=== PATIENT | male | born 1950 | race Caucasian/White ===

== ENCOUNTER 2019-02-19 11:13 | Emergency (ER) | payer MEDICARE ==
[~2019-02-19] VITALS: Ht 180.3 cm; Wt 102.1 kg
[2019-02-19 11:57] VITALS: BP 191/93
--- NOTE | 2019-02-19 12:19 | PHYS DOC ---
Past Medical History Past Medical History: Kidney Stone Additional Past Medical Histor: ENLARGED PROSTATE Past Surgical History: No Surgical History Alcohol Use: None Drug Use: None Adult General Chief Complaint Chief Complaint: URINARY RETENTION HPI HPI Patient is a 68 year old male who presented to ER today for evaluation of not able to urination 6:30 PM yesterday. Patient complaint of bladder distention and pain. Patient has history of benign prostatic hypertrophy. He denies any fever, no nausea vomiting. Review of Systems Review of Systems Constitutional: Denies fever or chills [] Eyes: Denies change in visual acuity, redness, or eye pain [] HENT: Denies nasal congestion or sore throat [] Respiratory: Denies cough or shortness of breath [] Cardiovascular: No additional information not addressed in HPI [] GI: Denies abdominal pain, nausea, vomiting, bloody stools or diarrhea [] : POSITIVE FOR URINARY RETENTION, BLADDER PAIN Musculoskeletal: Denies back pain or joint pain [] Integument: Denies rash or skin lesions [] Neurologic: Denies headache, focal weakness or sensory changes [] Endocrine: Denies polyuria or polydipsia [] All other systems were reviewed and found to be within normal limits, except as documented in this note. Current Medications Current Medications Current Medications Medications (Trade) Dose Ordered Sig/Layla Start Time Stop Time Status Last Admin Dose Admin Acetaminophen/ Hydrocodone Bitart (Lortab 5/325) 2 tab 1X ONCE 02/19/19 12:45 02/19/19 12:46 DC 02/19/19 12:24 2 TAB Diazepam (Valium) 5 mg 1X ONCE 02/19/19 12:30 02/19/19 12:31 DC 02/19/19 12:09 5 MG Tamsulosin HCl (Flomax) 0.4 mg 1X ONCE 02/19/19 12:30 02/19/19 12:31 DC 02/19/19 12:09 0.4 MG Allergies Allergies Allergies Coded Allergies Type Severity Reaction Last Updated Verified No Known Drug Allergies 02/19/19 No Physical Exam Physical Exam Constitutional: Well developed, well nourished, no acute distress, non-toxic appearance. [] Cardiovascular:Heart rate regular rhythm, no murmur [] Lungs & Thorax: Bilateral breath sounds clear to auscultation [] Abdomen: Bowel sounds normal, soft, tenderness AT SUPRAPUBIC AREA, BLADDER DISTENDED, no masses, no pulsatile masses. [] Skin: Warm, dry, no erythema, no rash. [] Back: No tenderness, no CVA tenderness. [] Extremities: No tenderness, no cyanosis, no clubbing, ROM intact, no edema. [] Neurologic: Alert and oriented X 3, normal motor function, normal sensory function, no focal deficits noted. [] Psychologic: Affect normal, judgement normal, mood normal. [] Current Patient Data Vital Signs Vital Signs Date Time Temp Pulse Resp B/P (MAP) Pulse Ox O2 Delivery O2 Flow Rate FiO2 02/19/19 12:24 18 02/19/19 11:57 97.7 83 191/93 (125) 98 Room Air 97.7 EKG EKG [] Radiology/Procedures Radiology/Procedures [] Course & Med Decision Making Course & Med Decision Making Pertinent Labs and Imaging studies reviewed. (See chart for details) A bladder scan shown 800 of URINE IN BLADDER, UROLOGIST PLACED PARHAM CATHETER IN ER, COLLECTED ABOUT 1 L OF URINE OUTPUT IMMEDIATELY. WILL DISCHARGE HOME WITH LEG BAG CATHETER. FOLLOW UP WITH UROLOGIST THIS WEEK. Dragon Disclaimer Dragon Disclaimer This electronic medical record was generated, in whole or in part, using a voice recognition dictation system. Departure Departure Impression: Primary Impression: Acute urinary retention Disposition: 01 HOME, SELF-CARE Condition: IMPROVED Referrals: ISAEL AQUINO (PCP) ALEXIS YOUSSEF MD FOLLOW UP WITH DR. YOUSSEF IN 3 DAYS FOR VOID TRIAL Patient Instructions: [place] Catheter Care, Adult, Urinary Retention, Acute, Male Scripts Tamsulosin Hcl (FLOMAX) 0.4 Mg Cap.er.24h 0.4 MG PO DAILY for 30 Days, #30 TAB Prov: OLIVE STALLWORTH DO 02/19/19 OLIVE STALLWORTH DO Feb 19, 2019 12:19
[2019-02-19] MEDS ORDERED: diazePAM 5 MG TABLET PO ONE (12:30)
[2019-02-19] MEDS ORDERED: TAMSULOSIN 0.4 MG CAP.ER.24H. PO ONE (12:30)
[2019-02-19] MEDS ORDERED: HYDROcodone/APAP 5/325MG 1 TAB TABLET PO ONE (12:45)
--- NOTE | 2019-02-19 13:19 | PDOC4 ---
PROCEDURE Procedure Asked to see patient to place burgos catheter. Er unsuccessful x 2 attempts. Patient reports history of BPH, no urinary bother until today. He sees Dr. Hawk. Patient sterilely prepped and draped and sterile technique used. Unable to pass 18 Ft coude catheter due to resistance at prostate. Able to pass hydrophilic guidewire into bladder, and then 16 [place] tribes catheter over the wire without resistance. 900 ml yellow urine returned. Start Flomax 0.4 mg daily. F/u 3 days in urology clinic for voiding trial. ALEXIS YOUSSEF MD Feb 19, 2019 13:19
[2019-02-19] MEDS ORDERED: TAMS0.4C97 PO (14:02)
== END 2019-02-19 14:15 | disposition home or self-care (01) ==
LOC: ER 11:13
DX: R33.9 Retention of urine, unspecified (principal); Z87.442 Personal history of urinary calculi
CPT/HCPCS: 51702; 99284

== ENCOUNTER 2019-02-25 16:20 | Emergency (ER) | payer MEDICARE ==
[~2019-02-25] VITALS: Ht 180.3 cm; Wt 104.3 kg
[~2019-02-25 16:20] MED LIST: TAMS0.4C97 PO
--- NOTE | 2019-02-25 16:55 | PHYS DOC ---
Past Medical History Past Medical History: Kidney Stone Additional Past Medical Histor: ENLARGED PROSTATE (ALEXIS HO APRN) Past Surgical History: No Surgical History (ALEXIS HO APRN) Alcohol Use: None Drug Use: None (ALEXIS HO APRN) Adult General Chief Complaint Chief Complaint: URINE CATHETER PROBLEM HPI HPI Patient is a 68 year old [male] who presents with [decreased urinary output. Patient reports he had been seen here with 56 days ago for inability to urinate, had been followed by her mils of urine at that time, had catheterization attempted without success and urology and placed a catheter using wire guidance. Patient reports he had his follow-up 3 days later, had catheter removed, was able to urinate at that time. Reports he had followed up with urology the next day in their late office as he was unable to urinate again. Reports he had the catheter replaced at that time. Reports over the past 2-3 days he has continued to have a catheter placed, had no issues other than has had some increasing blood clots in it. Reports he has not had any urine noted in his catheter bag since 5:00 this morning. Reports it does feel like he needs to urinate, he has had some blood coming out of this penis with a small amount of liquid since that time. Continue to have no fluid in his catheter bag. Does report he did have some clots in his catheter bag over the past couple days, he had to try to break to pass When He Was Draining the Bag.] (ALEXIS HO APRN) Review of Systems Review of Systems Constitutional: Denies fever or chills [] Respiratory: Denies cough or shortness of breath [] Cardiovascular: No additional information not addressed in HPI [] GI: Denies abdominal pain, nausea, vomiting, bloody stools or diarrhea [] : Reports inability to pass urine x 2 days, with clots noted to urine bag [] Musculoskeletal: Denies back pain or joint pain [] Integument: Denies rash or skin lesions [] Neurologic: Denies headache, focal weakness or sensory changes [] Endocrine: Denies polyuria or polydipsia [] All other systems were reviewed and found to be within normal limits, except as documented in this note. (ALEXIS HO APRN) Current Medications Current Medications Current Medications Medications (Trade) Dose Ordered Sig/Layla Start Time Stop Time Status Last Admin Dose Admin Sodium Chloride (NORMAL SALINE FLUSH for STERILE FIELD) 10 ml STK-MED ONCE 02/25/19 17:54 02/26/19 09:18 DC (LUIS AMBRIZ MD) Allergies Allergies Allergies Coded Allergies Type Severity Reaction Last Updated Verified No Known Drug Allergies 02/19/19 No (LUIS AMBRIZ MD) Physical Exam Physical Exam Constitutional: Well developed, well nourished, no acute distress, non-toxic appearance. [] HENT: Normocephalic, atraumatic, bilateral external ears normal, oropharynx moist, no oral exudates, nose normal. [] Eyes: PERRLA, EOMI, conjunctiva normal, no discharge. [] Neck: Normal range of motion, no tenderness, supple, no stridor. [] Cardiovascular:Heart rate regular rhythm, no murmur [] Lungs & Thorax: Bilateral breath sounds clear to auscultation [] Abdomen: Bowel sounds normal, soft, no tenderness, no masses, no pulsatile masses. [] Skin: Warm, dry, no erythema, no rash. [] Back: No tenderness, no CVA tenderness. [] Extremities: No tenderness, no cyanosis, no clubbing, ROM intact, no edema. [] Neurologic: Alert and oriented X 3, normal motor function, normal sensory function, no focal deficits noted. [] Psychologic: Affect normal, judgement normal, mood normal. : 16 Fr coude catheter noted in place. No urine or blood clots noted in catheter bag. Small amount of blood noted near meatus with small amount of leakage. [] (ALEXIS HO APRN) Current Patient Data Vital Signs Vital Signs Date Time Temp Pulse Resp B/P (MAP) Pulse Ox O2 Delivery O2 Flow Rate FiO2 02/25/19 19:15 86 18 145/79 (101) 98 Room Air 02/25/19 16:28 98.1 98.1 (LUIS AMBRIZ MD) EKG EKG [] (ALEXIS HO APRN) Radiology/Procedures Radiology/Procedures [] (ALEXIS HO APRN) Course & Med Decision Making Course & Med Decision Making Pertinent Labs and Imaging studies reviewed. (See chart for details) [Discussedc with Dr Duran, Urology, Recommends flushing catheter - as long as it drains and not grossly bloody, patient safe for discharge home with follow up in clinic in 1-2 days. If unable to flush, may need to admit for replacement. Does not recommend removal of catheter. Will flush and await results. Flushed approx 500 ml fluid, noticed darkened urine, large number of clots. Patient able to pass urine. Will continue to monitor, as long as he continues to produce urine, will discharge with follow up. @1924 - Continues to have large amount of blood in urine, is able to pass through catheter. Catheter remainsi n place, few clots noted. Patient feels ready for discharge] (ALEXIS HO APRN) Course & Med Decision Making Staff Physician Addendum: I was working in the ER during the course of this patient's visit. I was srinivas ilable for consultation as needed, but I was not directly involved in the care of this patient. (LUIS AMBRIZ MD) Dragon Disclaimer Dragon Disclaimer This electronic medical record was generated, in whole or in part, using a voice recognition dictation system. (ALEXIS HO APRN) Departure Departure Impression: Primary Impression: Hematuria Additional Impression: Obstructed [place] catheter Disposition: HOME, SELF-CARE Condition: GOOD Referrals: ISAEL AQUINO (PCP) Patient Instructions: [place] Catheter Care, Adult Additional Instructions: As we discussed, follow-up with Dr. Duran office tomorrow or Tuesday. Continue to hydrate, continue your home medications. Problem Qualifiers Primary Impression: Hematuria Hematuria type: gross Qualified Codes: R31.0 - Gross hematuria Additional Impression: Obstructed [place] catheter Encounter type: subsequent encounter Qualified Codes: T83.091D - Other mechanical complication of indwelling urethral catheter, subsequent encounter ALEXIS HO APRN Feb 25, 2019 16:55 LUIS AMBRIZ MD Feb 26, 2019 21:47
[2019-02-25] MEDS ORDERED: 0.9 % SOD CHL for STERILE FIELD 10 ML DISP.SYRIN. ONE (17:54)
[2019-02-25 19:15] VITALS: BP 145/79
== END 2019-02-25 19:37 | disposition home or self-care (01) ==
LOC: ER 16:20
DX: T83.091D Other mechanical complication of indwelling urethral catheter, subsequent encounter (principal); R31.0 Gross hematuria; Z87.442 Personal history of urinary calculi
CPT/HCPCS: 99284

== ENCOUNTER 2019-04-21 13:03 | Emergency (ER) | payer MEDICARE ==
[~2019-04-21] VITALS: Ht 180.3 cm; Wt 104.3 kg
--- NOTE | 2019-04-21 14:09 | PHYS DOC ---
Past Medical History Past Medical History: Kidney Stone Additional Past Medical Histor: ENLARGED PROSTATE Past Surgical History: No Surgical History Alcohol Use: None Drug Use: None Adult General Chief Complaint Chief Complaint: URINE CATHETER PROBLEM HPI HPI Patient is a 69 year old male who presents to the ER with complaints of his catheter not draining. Pt states he tried flushing the catheter at home but could not get the catheter to drain. He states the current catheter has been in placed for a month and is due to be changed next week. He denies any fever, hematuria, back pain, abdominal pain, nausea, vomiting, or diarrhea. He had a prostate bx by Dr. Gastelum 5 days ago. Review of Systems Review of Systems Constitutional: Denies fever or chills [] Eyes: Denies redness, or eye pain [] HENT: Denies nasal congestion or sore throat [] Respiratory: Denies cough or shortness of breath [] Cardiovascular: No additional information not addressed in HPI [] GI: Denies abdominal pain, nausea, vomiting, bloody stools or diarrhea [] : Denies dysuria or hematuria; see HPI [] Musculoskeletal: Denies back pain or joint pain [] Integument: Denies rash or skin lesions [] Neurologic: Denies headache All other systems were reviewed and found to be within normal limits, except as documented in this note. Allergies Allergies Allergies Coded Allergies Type Severity Reaction Last Updated Verified No Known Drug Allergies 02/19/19 No Physical Exam Physical Exam Constitutional: Well developed, well nourished, no acute distress, non-toxic appearance. [] HENT: Normocephalic, atraumatic, bilateral external ears normal, nose normal. [] Eyes: PERRLA, EOMI, conjunctiva normal, no discharge. [] Neck: Normal range of motion, no stridor. [] Cardiovascular:Heart rate regular rhythm, no murmur [] Lungs & Thorax: Respirations even and unlabored, no retractions, no respiratory distress Abdomen: soft, no tenderness, no masses, no pulsatile masses. : coude catheter in placed, normal urethral meatus, no purulent drainage, no erythema [] Skin: Warm, dry, no erythema, no rash. [] Extremities: No cyanosis, no clubbing, ROM intact, no edema. [] Neurologic: Alert and oriented X 3, no focal deficits noted. [] Psychologic: Affect normal, judgement normal, mood normal. [] Current Patient Data Vital Signs Vital Signs Date Time Temp Pulse Resp B/P (MAP) Pulse Ox O2 Delivery O2 Flow Rate FiO2 04/21/19 14:30 82 18 148/77 (100) 97 Room Air 04/21/19 13:56 98.3 98.3 EKG EKG [] Radiology/Procedures Radiology/Procedures [] Course & Med Decision Making Course & Med Decision Making Pertinent Labs and Imaging studies reviewed. (See chart for details) 1408- Spoke with Dr Youssef will replace existing catheter with the same coud catheter 1425- The existing 16 nepali coude catheter was removed by myself and replaced with a new 16 fr coude catheter using aseptic technique. Pt tolerated procedure well. The catheter was secured to his left thigh with a urinary stat lock. Pt tolerated procedure well, there were no complications. Pt discharged with burgos in place. Follow up with Dr. Seth next week, return to the ER if symptoms worsen. Patient verbalized an understanding of home care, medications, follow-up, and return to ED instructions and was in agreement with the plan of care. [] Dragon Disclaimer Dragon Disclaimer This electronic medical record was generated, in whole or in part, using a voice recognition dictation system. Departure Departure Impression: Primary Impression: Encounter for [place] catheter replacement Disposition: HOME, SELF-CARE Condition: STABLE Referrals: ISAEL AQUINO (PCP) ALEXIS YOUSSEF MD Patient Instructions: [place] Catheter Care, Adult Additional Instructions: Follow up with Dr. Gastelum next week, return to the ER if symptoms worsen. ALEX AMBRIZ VARNISHER Apr 21, 2019 14:09
[2019-04-21 14:30] VITALS: BP 148/77
== END 2019-04-21 15:09 | disposition home or self-care (01) ==
LOC: ER 13:03
DX: Z46.6 Encounter for fitting and adjustment of urinary device (principal); Z87.442 Personal history of urinary calculi
CPT/HCPCS: 51702; 99284